=== PATIENT | female | born 1985 | race Two or more races ===

== ENCOUNTER 2024-10-19 05:46 | Day surgery (SDC) | payer OTHER ==
[2024-10-16 09:21] LABS: URINE APPEARANCE Cloudy; URINE BILIRRUBIN Negative (NEGATIVE); URINE BLOOD Moderate; URINE COLOR Yellow; URINE GLUCOSE Negative (NEGATIVE); URINE KETONE Negative (NEGATIVE); URINE LEUKOCYTE Moderate; URINE NITRATE Negative; URINE PROTEIN Negative (NEGATIVE); URINE UROBILINOGEN 0.2 E.U./dl
[2024-10-16 09:25] LABS: URINE EPITHELIAL CELLS 71.5 uL (0.0-38.8); URINE RBC 13.4 uL (0.0-20.8); URINE WBC 87.3 uL (0.0-23.2)
[2024-10-16 09:34] LABS: BASO % 0.4 % (0.1-1.2); EOS # 0.09 (0.04-0.54); HEMATOCRIT 34.4 % (34.1-44.9); HEMOGLOBIN 11.1 g/dL (11.2-15.7); LYMPH # 1.65 (1.18-3.74); LYMPH % 36.7 % (19.3-53.1); MEAN CORPUSCULAR HEMOGLOBIN 26.2 pg (25.6-32.2); MONO # 0.57 (0.24-0.82); NEUT # 2.15 (1.56-6.13); PLATELET COUNT 189 K/uL (163-369); RED BLOOD COUNT 4.24 M/uL (3.93-5.22); RED CELL DISTRIBUTION WIDTH 13.8 % (11.6-14.4)
[2024-10-16 09:35] LABS: MONO % 12.7 % (4.7-12.5)
[2024-10-16 09:49] LABS: COVID-19 AG NEGATIVE (NEGATIVE)
[2024-10-16 09:54] LABS: INR 1.02; PARTIAL THROMBOPLASTIN TIME 27.1 SECONDS (22.0-34.0); PROTHROMBIN TIME 11.1 SECONDS (9.0-11.5)
[2024-10-16 10:05] LABS: ALBUMIN 3.8 gm/dL (3.4-5.0); BILIRUBIN TOTAL 0.37 mg/dL (0.3-1.2); CALCIUM 8.6 mg/dL (8.5-10.1); CREATININE SERUM 0.69 mg/dL (0.55-1.02); GFR 95.22; GLOBULINA 3.8 G/DL (2.4-3.5); POTASSIUM 4.1 mEq/L (3.5-5.1); TOTAL PROTEIN 7.6 gm/dL (6.4-8.2)
[2024-10-16 11:20] LABS: RH POSITIVE
[2024-10-19] MEDS ORDERED: CEFAZOLIN SODIUM 1,000 MG VIAL ONE (08:53)
[2024-10-19] MEDS ORDERED: METRONIDAZOLE/SODIUM CHLORIDE 500 MG/100 ML PIGGYBACK IV ONE (08:53)
[2024-10-19] MEDS ORDERED: CHLORHEXIDINE GLUCONATE 120 ML BOTTLE TOP ONE (11:05)
[2024-10-19] MEDS ORDERED: POVIDONE-IODINE 118 ML BOTT TOP ONE (11:06)
[2024-10-19] MEDS ORDERED: MORPHINE SULFATE 4 MG/ML VIAL IV PRN (11:45)
[2024-10-19] MEDS ORDERED: MORPHINE SULFATE 4 MG/ML VIAL IV ONE (12:55)
[2024-10-20 11:45] VITALS: BP 140/68; O2SAT 100
== END 2024-10-19 14:45 | disposition home or self-care (01) ==
LOC: CIR.AMB 05:46
PROVIDERS: ATTEND Obstetrics & Gynecology Gynecologic Oncology
DX: N84.0 Polyp of corpus uteri (principal); N93.8 Other specified abnormal uterine and vaginal bleeding; Z88.6 Allergy status to analgesic agent